=== PATIENT | female | born 1990 | race Caucasian/White ===

== ENCOUNTER 2017-04-12 05:21 | Inpatient (IN) | payer OTHER ==
[~2017-04-12] VITALS: Ht 165.1 cm; Wt 77.1 kg
[~2017-04-12 05:21] MED LIST: IBUPROFEN800 M1 PO; NORCO 5-325 TA1 EACH PO; PRENATAL ONE T1 EAC1 PO; SELENOMAX200 MCG PO; VITAMIN D3; [UNRECOGNIZED DRUG - OTHER]
[2017-04-13 06:58] LABS: BASO % 0.1 % (0-2); EOS % 0.5 % (0-7); EOSINOPHIL ABSOLUTE COUNT 0.1 tho/cmm (0.0-0.7); HCT-HEMATOCRIT 36.8 % (34.0-49.0); HGB-HEMOGLOBIN 12.1 gm/dl (12.0-15.5); LYMPH % 17.2 % (20-45); LYMPH ABSOLUTE COUNT 1.9 tho/cmm (0.8-4.5); MCH (MEAN CORPUSCULAR HGB) 30.6 pg (28.0-32.0); MCHC MEAN CORPUSCULAR HGB CONC 32.9 % (32.0-36.0); MCV (MEAN CELL VOLUME) 93.2 fl (82.0-96.0); MEAN PLATELET VOLUME 10.8 cmc (9.4-12.4); MONO % 7.2 % (0-12); MONOCYTE ABSOLUTE COUNT 0.8 tho/cmm (0.0-1.2); NEUTROPHIL ABSOLUTE COUNT 8.4 tho/cmm (1.6-8.0); NEUTROPHIL-AUTOMATED 8.4 tho/cmm (1.6-8.0); PLATELET COUNT 201 tho/cmm (150-450); RED BLOOD COUNT 3.95 mil/cmm (4.00-5.20); RED CELL DISTRIBUTION WIDTH 12.6 % (12.4-16.4); WHITE BLOOD COUNT 11.3 tho/cmm (4.0-10.0)
[2017-04-13] MEDS ORDERED: HYDROCODON-ACE1 EA16 PO (09:46)
[2017-04-13] MEDS ORDERED: IBUPROFEN800 M1 PO (09:50)
== END 2017-04-13 16:23 | DRG 775 ==
LOC: LDR 05:21 → OBGF 11:44 → LDR 04-26 05:18
PROVIDERS: ADMIT Family Medicine
PROC: 10E0XZZ Delivery of Products of Conception, External Approach (ICD-10-PCS; principal; 2017-04-12)
PROC: 0UQMXZZ Repair Vulva, External Approach (ICD-10-PCS; 2017-04-12)
DX: O60.23X0 Term delivery with preterm labor, third trimester, not applicable or unspecified (principal); E03.9 Hypothyroidism, unspecified; O42.02 Full-term premature rupture of membranes, onset of labor within 24 hours of rupture; Z3A.38 38 weeks gestation of pregnancy; Z37.0 Single live birth; O71.82 Other specified trauma to perineum and vulva; O99.284 Endocrine, nutritional and metabolic diseases complicating childbirth
CPT/HCPCS: J2540; J2590